=== PATIENT | male | born 1940 | race Caucasian/White ===

== ENCOUNTER → 2018-10-11 11:54 | Outpatient (CLI) | payer MEDICARE, SELFPAY | PROVIDERS: Family Provider Family Medicine; PCP Family Medicine; Visit Provider Orthopaedic Surgery | DX: Z01.818 Encounter for other preprocedural examination (principal) | CPT/HCPCS: 93005 ==

== ENCOUNTER 2018-11-11 08:33 | Inpatient (IN) | payer MEDICARE, SELFPAY ==
[2018-10-28 13:39] VITALS: BMI 29.8
[2018-11-11] VITALS (12 sets, daily range): BP systolic 97–146; BP diastolic 49–75; PULSE 47–64; RESP 9–19; TEMP 35.5–36.7; O2SAT 95–100; BMI 28.7
--- NOTE | 2018-11-11 | DI.RAD.S_ITS ---
PROCEDURE: XR HIP W PEL IF DONE LT 2V INDICATIONS: TOTAL LEFT HIP POST OPERATIVE TECHNIQUE: AP pelvis and lateral view of the left hip acquired. COMPARISON: None. FINDINGS: Bones: Patient is status post left hip arthroplasty, with hardware components in expected positions. The hip joint appears congruent. The visualized bony structures appear intact. Soft tissues: Overlying postoperative changes are noted. No suspicious soft tissue densities. Left hip periarticular surgical drain noted. IMPRESSION: Expected postsurgical change for left hip arthroplasty. Dictated by: Tatiana Ritter MD, PhD on 11/11/2018 at 13:58 Approved by: Tatiana Ritter MD, PhD on 11/11/2018 at 13:59
--- NOTE | 2018-11-11 06:00 | DI.RAD.S_ITS ---
PROCEDURE: XR PELVIS 1-2V INDICATIONS: INTEROPERTIVE LEFT HIP TECHNIQUE: Intra-operative view of the pelvis and hip acquired. COMPARISON: None. FINDINGS: Bones: Intraoperative devices prior to placement of arthroplasty prostheses are in expected positions. No fractures or suspicious bony lesions. Soft tissues: Overlying surgical retractors are present, along with other intraoperative changes. Dictated by: Jese White M.D. on 11/11/2018 at 16:31 Approved by: Jese White M.D. on 11/11/2018 at 16:32
[2018-11-11] MEDS: LACTATED RINGERS 1,000 ML 42 ML IV ×2 (09:04→11:57)
[2018-11-11] MEDS: CELECOXIB 200 MG CAPSULE PO (09:12)
[2018-11-11] MEDS: ACETAMINOPHEN 325 MG TABLET 975 MG PO ×3 (09:13→21:05)
[2018-11-11] MEDS: VANCOMYCIN 1,000 MG/200 ML PIGGYBACK 200 MG IV (10:06)
--- NOTE | 2018-11-11 10:39 | PM.PREOP ---
Pre-operative Note Interval Note History & Physical reviewed/Exam performed by Physician: Yes Changes to H&P: No
--- NOTE | 2018-11-11 10:40 | P.OP_ITS ---
Operative Date/Time/Diagnoses Date of procedure: 11/11/18 Time of procedure: 11:18 Pre-op diagnosis: Left hip osteoarthritis Post-op diagnosis: same Procedure & Clinicians Procedure: Left total hip arthroplasty Same procedure as scheduled: Yes Indications: The patient has had progressively worsening left hip pain with radiographic changes consistent with arthritis. Non-operative management has failed and the patient has requested total hip replacement. The risks, benefits and alternatives to surgery were discussed with the patient prior to proceeding. Risks discussed included, but were not limited to, failure to relieve pain, leg length discrepancy, dislocation, stiffness, infection, nerve damage, deep venous thrombosis, pulmonary embolism, stroke, coma, heart attack, permanent paralysis and , as well as the potential need for eventual revision of the prosthetic. Surgeon: Deloris Krishnan Nurse Infection Control: Lin Mcallister Anesthesia Type: General and Spinal Operative Notes Findings: Severe left hip osteoarthritis, good stability Closure Type: primary Specimen(s): none sent Prosthetic devices, grafts, tissues, transplants, or devices: Krishnan and Nephew R3 60, anthology standard offset 10, +4 by 40 Applied: drain(s) Estimated Blood Loss (mL): 250 Blood products transfused: none Procedure in detail: The patient was seen in the pre-operative area, where the patient identified the left hip as the operative site and this was marked with my initials. The patient received pre-operative antibiotics and was taken to the operating room and placed on the operative table in the right lateral decubitus position after satisfactory anesthesia. A time study technologist out was performed. The left leg was prepared from the ankle to the iliac crest with ChloroPrep in the usual fashion and draped through sterile drapes. The hip was approached through an approximately 20 cm incision centered over the greater trochanter and curving gently posteriorly as it went proximally. This was carried sharply to the fascia maya, which was divided and retracted with a self retaining retractor. The trochanteric bursa was excised with care being taken to avoid the sciatic nerve, which was identified and protected throughout the case. The short external rotators were incised and the capsulomuscular flap was raised and tagged for later repair. The hip was dislocated, and a femoral neck osteotomy performed approximately 15 mm above the lesser trochanter. Retractors were placed around the femur. The canal was opened with a box cutting osteotome, followed by a T handled reamer and a lateralizing reamer. The chili pepper broach was then used, followed by sequential broaching until there was good stability of the broach in the femur. Retractors were placed to expose the acetabulum. The labrum and central soft tissues were removed. Reaming was performed initially going up in 2 mm increments, then 1 mm increments until good bite was obtained with an odd sized reamer. The cup 1 mm larger than the last reamer was then inserted using the appropriate anteversion guides. A trial neutral liner was placed. The broach was placed in the canal. A trial head and neck were then placed and the hip relocated and checked for leg length and stability. An intraoperative film confirmed the component position and no evidence of fracture. The patient was stable in the position of sleep, of squatting, and could be put through a range of motion with 45 degrees internal rotation without dislocation. At 90 degrees flexion, internal rotation to [70] was possible before dislocation. This was felt to be satisfactory and the appropriate components were opened, and the trials were removed. The acetabular liner was impacted into position. The final stem was then impacted into the prepared femoral canal. A brief Betadine soak was performed while trialing with head options. The hip was meticulously irrigated with normal saline. Finally the femoral head was impacted onto the stem. The acetabulum was cleared of all material and the hip relocated one final time. The capsulomuscular flap was then repaired to the greater trochanter though an awl hole using the tag sutures. The short external rotators were repaired with a nonabsorbable suture. A deep drain was placed and brought out anteriorly. The fascia maya was closed with Vicryl. The subcutaneous layer was closed with barbed sutures and SteriStrips. An Aquacel Ag dressing was applied and the patient was taken to recovery having tolerated the procedure well. Complications: none Post-operative Condition: stable Disposition: Acute Care Plan for aftercare: The patient will be maintained on a standard total hip replacement protocol with weight bearing as tolerated and posterior hip precautions. The patient will receive Xarelto or coumadin and sequential compression devices for DVT prophylaxis. 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 The patient will be discharged home when safe for the home environment.
[2018-11-11] MEDS: CEFAZOLIN 2 GM/100 ML FROZ.PIGGY IV ×2 (11:05→19:03)
--- NOTE | 2018-11-11 11:37 | SUR.OPER ---
Lateral on padded OR bed. Gel axillary roll. Arms secured on padded armboard with pillow supporting top arm. Padded hip positioner braces x4 - anterior and posterior chest and pelvis. Additional gel pad used anterior pelvis. Gel pad under bottom leg from knee to foot and secured with tape over sheet.
[2018-11-11] MEDS: BUPIVACAINE 0.25% W/ EPI 30 ML VIAL 60 ML INJ (11:44)
[2018-11-11] MEDS: BUPIVACAINE LIPOSOME 266 MG/20 ML VIAL INJ (11:44)
[2018-11-11] MEDS: SODIUM CHLORIDE IRRIG SOLUTION 250 ML, POVIDONE-IODINE SPONGE STICKS 1 APPLIC IRR (11:46)
--- NOTE | 2018-11-11 13:52 | SUR.PHASEI ---
stable pacu stay, transported up to room 225 and left in stable condition.
[2018-11-11] MEDS: LACTATED RINGERS 1,000 ML 125 ML IV ×2 (14:26→21:09)
--- NOTE | 2018-11-11 14:38 | PC.NURSE ---
Patient alert, oriented denies pain and nausea at this time. SCd's on, pt oriented to call light and room.
--- NOTE | 2018-11-11 17:38 | PC.NURSE ---
Addendum entered by Zelda Galeano R.N. 11/11/18 23:23: Correction to prior note. Pt does not have concepcion note was meant to read urinal placed at bedside. Pt has voided via urinal this shift. Original Note: Assumed care of pt at 1500. Pt resting in bed during bedside hand-off. Denies pain. CMS+. Drsg c/d/i with h/v compressed and draining sang drainage. SCD's. IVF infusing per orders. Following post. hip precautions, pillow between legs. Concepcion placed at bedside. Bed alarm on. Call light within reach. Student nurse participating with pt care and medication administrations. All care/administration completed by student nurse under supervision of this RN.
[2018-11-11] MEDS: ASPIRIN EC 81 MG TABLET PO (21:04)
[2018-11-11] MEDS: OXYCODONE IR 5 MG TABLET PO (21:04)
[2018-11-11] MEDS: DOCUSATE 100 MG CAPSULE PO (21:05)
[2018-11-11] MEDS: TERAZOSIN 5 MG CAPSULE 10 MG PO (21:05)
[2018-11-11] MEDS: SIMVASTATIN 10 MG TABLET PO (21:05)
[2018-11-12] MEDS: CEFAZOLIN 2 GM/100 ML FROZ.PIGGY IV (02:59)
[2018-11-12] MEDS: PANTOPRAZOLE 20 MG TABLET PO (05:33)
[2018-11-12 05:35] VITALS: BP 122/63; PULSE 98; RESP 16; TEMP 36.6; O2SAT 98
[2018-11-12 06:12] LABS: Hematocrit 33.6 % (41-53); Hemoglobin 11.3 g/dL (13.5-17.5)
[2018-11-12 07:49] VITALS: BP 118/64; PULSE 66; RESP 16; TEMP 36.7; O2SAT 99
--- NOTE | 2018-11-12 07:56 | P.PN_ITS ---
Subjective Subjective Date Patient Seen: 11/12/18 Time Patient Seen: 07:56 Interval history: POD #1 s/p Left total hip arthroplasty. Pain well controlled. Will do Xarelto for history of PE. Drain in place. Exam Vital Signs (past 8 hours): - 11/12/18 05:35 11/12/18 07:49 Temperature 97.8 F 98.0 F Pulse Rate 98 H 66 Respiratory Rate 16 16 Blood Pressure 122/63 118/64 Pulse Oximetry 98 99 Oxygen Delivery Method Room Air Oxygen Flow Rate 0 Narrative Exam Narrative: Patient lying in bed in NAD. He is alert and oriented X3. Dressing on left hip is CDI. Calves are soft, compressible, and nontender bilaterally. Pulses are symmetrical. He is able to actively dorsiflex and p lantarflex. Objective Labs Result Diagrams: 11/12/18 06:00 Labs: Laboratory Results - last 24 hr 11/12/18 06:00 Hgb 11.3 L Hct 33.6 L Assessment & Plan Post-op Postoperative Procedures: Procedures Operation Date: 11/11/18 10:45 Actual Procedures Side Surgeon p Total Hip Arthroplasty Left Deloris Krishnan MD Plan to work with PT today. Follow posterior precautions. Xarelto for VTE prophylaxis. Continue current pain control. Possible DC home today or tomorrow morning. Quality VTE Deep Vein Thrombosis/Pulmonary Embolism Present on Admission: No
[2018-11-12] MEDS: OXYCODONE IR 5 MG TABLET PO ×2 (08:48→13:49)
[2018-11-12] MEDS: RIVAROXABAN 10 MG TABLET PO (09:21)
[2018-11-12] MEDS: ACETAMINOPHEN 325 MG TABLET 975 MG PO (09:21)
[2018-11-12] MEDS: DOCUSATE 100 MG CAPSULE PO (09:22)
[2018-11-12] MEDS: INFLUENZA VACCINE 0.5 ML SYRINGE IM (09:23)
[2018-11-12] MEDS: ASPIRIN EC 81 MG TABLET PO (09:23)
--- NOTE | 2018-11-12 10:55 | PT.IIE ---
Current Diagnoses Unilateral primary osteoarthritis, left hip (11/11/18) Surgery Performed Operation Date: 11/11/18 10:45 Actual Procedures p Total Hip Arthroplasty(Left) - Deloris Krishnan MD Surgical History (Last Updated 10/28/18 @ 14:19 by Starla Hawkins, RN) H/O vasectomy (Acute) History of arthroplasty of left knee (Acute 12/06/10) History of laser refractive surgery (Acute) Hx of bilateral cataract extraction (Acute) Hx of hernia repair (Acute) Medical History (Last Updated 10/28/18 @ 14:19 by Starla Hawkins RN) Back pain (Acute) Enlarged prostate (Acute) GERD (gastroesophageal reflux disease) (Acute) History of kidney problems (Acute) HLD (hyperlipidemia) (Acute) HTN (hypertension) (Acute) Loss of hearing (Acute) Numbness and tingling of both feet (Acute) Pneumonia (Acute) Pulmonary emboli (Acute 12/06/10) Skin cancer (Acute) Physical Therapy Inpatient Evaluation/Re-Eval M1 PT/OT-IP Prior Functional Status Start: 11/12/18 09:45 Freq: NEEDED Status: Active Protocol: Document 11/12/18 10:30 AW (Rec: 11/12/18 10:54 AW [email or web address]) Medical Review Prior Functional Status Medical History Reviewed Yes Diet/Fluid Consistency Regular Communication Able to make needs known Mobility and Gait Independent with all functional mobility, no assistive device Activities of Daily Living and IADL's Independent Social History Household Members spouse Living Arrangements House Number of Floors (Floors) Two Floors Number of Stairs To Enter/Railing? 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 Spouse is available and able to assist as needed. M2 PT-IP Current Condition Start: 11/12/18 09:45 Freq: NEEDED Status: Active Protocol: Document 11/12/18 10:30 AW (Rec: 11/12/18 10:54 AW [email or web address]) Physical Therapy Current Condition Current Condition Evaluation Date 11/12/18 Treatment Diagnosis s/p L HALLEY with posterior approach, impaired gait and transfers Precautions Posterior Hip Precautions No Hip Flexion > 90 degrees,No Hip Internal Rotation,No Hip Adduction Weight Bearing Status Weight Bearing Status Weight Bear as Tolerated Allowed Weight Bearing Amount (enter % WBAT LLE or #) (%) M3 PT-IP Subjective Start: 11/12/18 09:45 Freq: NEEDED Status: Active Protocol: Document 11/12/18 10:30 AW (Rec: 11/12/18 10:54 AW [email or web address]) Subjective Physical Therapy Visit Type Type Initial Evaluation Visit Start Time 09:54 Visit Stop Time 10:28 Total Visit Minutes 34 Notes Pt seen with spouse and daughter present Number of FELLER SEAM OPERATOR Visits 0 Physical Therapy Visit Comments Patient Comments Pt sitting up in chair, ready to ambulate Patient Goals Pt hopes to discharge to home with spouse assist Therapy Pain Assessment Pain When Pain Assessed During Mobility Pain Present Pain Present Pain Reported Location Hip Intensity 4 Scale Used 2/10 at rest; 4/10 with mobility Pain Management Techniques Apply Cold,Timing of Activity with Medications M4 PT-IP Mobility and Gait Start: 11/12/18 09:45 Freq: NEEDED Status: Active Protocol: Document 11/12/18 10:30 AW (Rec: 11/12/18 10:54 AW [email or web address]) PT-Bed Mobility Assessment Supine to Sit Supine to Sit Standby Assistance Sit to Supine Sit to Supine Contact Guard Assistance Scooting Scooting to Edge of Bed Standby Assistance PT-Transfer Assessment Sit to and From Stand Sit to and from Stand Contact Guard Assistance Equipment Transfer Assistive Device Gait Belt,Front Wheeled Walker Orthotic/Prosthetic Devices or Brace: No Transfers Transfer Destination Bed,Chair Transfer Technique pt ambulated with FWW Transfer Ability Level of Assist Standby Assistance,Contact Guard Assistance Comments Mobility Comments Pt able to transfer supine to sit SBA. Sit to supine required CGA to support the operative leg. Sit to stand required CGA and cues to maintain hip precautions/avoid bending forward. Gait Assessment Gait Gait Assistance Required: Standby Assistance Distance (Feet) 75 Able to Maintain Weight Bearing Status Yes During Gait Assistive Devices Assistive Device Gait Belt,Front Wheeled Walker Orthotic/Prosthetic Devices or Brace: No Gait Deviations General Gait Pattern Decreased Stride Length, Decreased Feet Clearance, Flexed Trunk Factors Limiting Gait Function Factors Limiting Gait Function Decreased Strength,Limited Range of Motion,Pain Comments Gait Comments Pt ambulated 75 feet using FWW SBA. He demonstrated equal step length, though he did note he felt he was stepping into a hole with RLE weightbearing. Pt was observed with excessive knee extension in LLE stance which likely explains the sensation. PT-Balance Assessment Sitting Balance and Reactions Static Sitting Balance Ability Good Dynamic Sitting Balance Ability Good Standing Balance and Reactions Static Standing Balance Ability Good Dynamic Standing Balance Ability Good Device Used FWW M5 PT-IP Objective Assessments Start: 11/12/18 09:45 Freq: NEEDED Status: Active Protocol: Document 11/12/18 10:30 AW (Rec: 11/12/18 10:54 AW [email or web address]) Orientation Orientation/Cognition Level of Alertness Alert Orientation Name,Date,Place,Situation Language Function Ability No Deficits Noted Safety Awareness Understands Safety Issues Memory Description No Deficits Noted Gross Range of Motion Upper Extremity ROM Assessment Within Functional Limits Lower Extremity ROM Assessment Left Impaired Strength Upper Extremity Strength Assessment Within Functional Limits Lower Extremity Strength Assessment Left Impaired Comments Strength Comments RLE grossly 5/5 Coordination Assessment Gross Coordination Gross Coordination WNL Sensation Assessment Sensation Gross Sensation WNL M6 PT-IP Treatment Start: 11/12/18 09:45 Freq: NEEDED Status: Active Protocol: Document 11/12/18 10:30 AW (Rec: 11/12/18 10:54 AW [email or web address]) Physical Therapy Treatment Exercises Exercises Ankle Pumps,Gluteal Sets,Quad Sets,Heel Slides M7 PT-IP Assessment and Plan Start: 11/12/18 09:45 Freq: NEEDED Status: Active Protocol: Document 11/12/18 10:30 AW (Rec: 11/12/18 10:54 AW [email or web address]) PT Summary Assessment and Plan Potential Rehabilitation Potential Excellent Status of Condition at Evaluation Evolving Summary Impairments Pain,ROM,Strength,Bed Mobility ,Transfers,Gait Assessment Summary Pt is an active 78 yo man seen on POD1 following L HALLEY with posterior approach. He was indpendent in all regards with mobility and ADL's. On evaluation, pt required CGA for transfers and SBA for ambulation 75 feet with FWW. PT reviewed plan of care, post -op exercises, posterior hip precautions, and safe use of FWW. PT strongly recommends pt continue to use FWW at least until follow up appointment with orthopedics. Pt is safe to discharge home with spouse assist and outpatient PT once he clears the stairs at afternoon session. Goals Bed Mobility Goal Independent Transfer Goal Standby Assistance Gait Goal Standby Assistance Gait Distance 150 Other Goals up/down 3 steps using left rail (ascending) SBA. Days to Meet Goals 1 Frequency of Treatment Frequency Of Treatment Twice a Day Treatment Plan Physical Therapy Treatment Plan Bed Mobility Training,Transfer Training,Gait Training, Therapeutic Exercise,Balance Retraining,Post Op Education, Discharge Planning,Hot or Cold Pack,Neuromuscular Re-ed, Coordination Retraining,Manual Therapy Other Recommendations and Next Treatment progress gait distance; trial Focus stairs. pt cleared for discharge after completing stair training. Recommendations To Nursing Amount of Assist Needed Standby Assistance Discharge Recommendations PT Discharge Recommendations Home with Assistance, Outpatient PT
--- NOTE | 2018-11-12 11:23 | CM.DANOTE ---
DCP assessment: EMR reviewed: Patient is a 78 yr old male who was admitted for Left total hip replacement preformed by Dr. Krishnan. Patients PCP is Dr. Curiel. met with patient at bedside and explained CM/RNs role. Patient lives in a two story home but does not need to go to the second floor. Patient does have 3 steps into his house and PT will be assisting with steps prior to discharge. Patient has OP OT set up to start on 11/18/2018 with [facility] in [place]. Insurance: 1st payer: Medicare, 2nd payer: AARP Discharge plan: Patient is to d/c home with OP PT today 11/12/2018 or tomorrow 11/13/2018 pending PT stair evaluation. No d/c planning needs identified at this time. Tricia Krishnan RN. Discharge Planning/Care Management Advanced directive, confirm from FAMILY Start: 11/11/18 14:25 Freq: Q24H Status: Active Protocol: Document 11/11/18 14:37 SFP (Rec: 11/11/18 14:37 SFP [id number]) Advance Directive, confirm on record Time 14:37 Person contacted Pat spouse Copy received No CM Discharge Assessment Start: 11/12/18 11:21 Freq: Status: Active Protocol: Document 11/12/18 11:21 HS (Rec: 11/12/18 11:23 HS [id number]) Discharge Planning Assessment Assigned Executive Manager Tricia Krishnan RN DPOA/Assigned Designee Name Damaris evangelista () Contact Information [phone] Advance Directives? Yes Advance Directives on File No History Provided By Patient Has Patient been admitted in last 30 No days? Prior Living Arrangements House Household Members spouse Type of transporation used prior to Drives own vehicle admit Independent with ADL's Yes Is patient alert and oriented? Yes Caregiver for Another No DME Already Rented / Owned FWW / Walker,Cane Patient/Family Preference OP PT Therapy Barriers to Discharge No Discharge Plan Home Whiteboard Updated in Patient Room with Yes name and ext. # of Executive Manager Review Status In Process Next Review Type Continued Stay Review Pre-Anesthesia Assessment Start: 10/28/18 13:39 Freq: Status: Complete Protocol: Document 10/28/18 13:39 CAB (Rec: 10/28/18 14:37 CAB [id number]) Pre-Anesthesia Assessment Patient Also Known As (AKA) Devyn Patient Information Reviewed Via Phone Assessment Assessment Completed With Patient Diagnostic Results BMP/CMP,CBC,EKG,Urinalysis Comment EKG @ [facility] 10/11/18 Outside labs 10/31/18, 09/16/18 scanned to record Primary Care Provider Han Curiel Seen Specialist in Last 12 Months Yes Specialist Seen Human Machine Interface Engineer,Orthopedist Primary Language Sudanese Meter Reader Inspector Required No Height 177.8 cm Weight 94.347 kg Body Mass Index (BMI) 29.8 Hearing Ability Normal Visual Assist Magnifying Glass Dentition Type Teeth, Natural Present Barriers to Learning Visual Other Aids No Hx Anesthesia Reactions No Hx Family Anesthesia Reaction No Hx Malignant Hyperthermia No Hx Blood Transfusions No Anesthesia Review Requested No alcohol intake never Smoking Status Never smoker Substance Use Type does not use Pain Present Pain Reported Musculoskeletal Symptoms Back Pain,Difficulty Walking, Joint Pain History of Falling (Recent or History of No ) Patient is completely paralyzed or No completely immobile Mental Status Oriented to own ability Is patient on oxygen? No Does patient have ROBLES/SOB No Hx Sleep Apnea No Currently Taking a Beta Toby No Can You Climb a Flight of Stairs Without Yes SOB Hx Chest Pain No Hx SOB No Hx Syncope or Dizziness No Anti-Coagulant Therapy No Has a Molecular Technologist No Cardiac Testing No Hx Pacemaker/ICD No Pacemaker Rep Required? No Cardiac Clearance Received Not Applicable Diet Type At Home Regular dysphagia No Bladder Pattern Frequency,Incontinent,Nocturia ,Urgency Urinary Catheter Present No Hx Urinary Self Catheterization No Diabetes No HgbA1C 5.7 Date 10/31/18 Hx Drug Resistant Organism No Presence of External or Internal Medical Yes: Left knee prosthesis, Devices bilateral eye lens Have you traveled outside the [facility] in the last 30 days? Marital Status Lives With spouse Prior Living Arrangements House Number of Floors (Floors) Two Floors Support System Child/Children,Spouse Does the Patient Have Assistance After Yes Surgery Patient Discharge Plan Description Return Home Feels Safe in Current Environment Yes Been Physically Hurt or Threatened By a No Person in Current Environment Do you have thoughts of harming yourself None or others? Are you currently considering suicide? No Do you have a plan to hurt yourself or No Plan others? Comment Pt advised 1-2 day length of stay per surgeon's office Do You Have Any Spiritual Beliefs That No May Affect Your HC Choices? Do You Have Any Cultural Practices That No May Affect Your HC Choices? Comment Muslim Who Can We Speak to About Patient's Care Family, friends Identifying Code for Release of Patient Declines to issue Information Health Care Proxy/Next of Kin Pat () Health Care Proxy , Emergency Contact Name Pat () Emergency Contact , Advance Directives? Yes Advance Directives on File No Requested Patient Bring Advanced Yes Directives DOS PAC Instructions Durable medical equipment, Medications to take/avoid, Nasal antibiotic,No ETOH/ petroleum product on skin DOS, NPO,Post-op transportation,Pre -surgical wash,Sensory aids, Sturdy shoes/comfortable clothes,Do not bring valuables and remove jewelry
[2018-11-12 12:14] VITALS: BP 109/53; PULSE 62; RESP 16; TEMP 36.7; O2SAT 99
[2018-11-12] MEDS: FINASTERIDE 5 MG TABLET PO (12:14)
--- NOTE | 2018-11-12 13:42 | PT.IPTN ---
Current Diagnoses Unilateral primary osteoarthritis, left hip (11/11/18) Surgery Performed Operation Date: 11/11/18 10:45 Actual Procedures p Total Hip Arthroplasty(Left) - Deloris Krishnan MD Physical Therapy Treatment Note M2 PT-IP Current Condition Start: 11/12/18 09:45 Freq: NEEDED Status: Discharge Protocol: Document 11/12/18 10:30 AW (Rec: 11/12/18 10:54 AW [id number]) Physical Therapy Current Condition Current Condition Evaluation Date 11/12/18 Treatment Diagnosis s/p L HALLEY with posterior approach, impaired gait and transfers Precautions Posterior Hip Precautions No Hip Flexion > 90 degrees,No Hip Internal Rotation,No Hip Adduction Weight Bearing Status Weight Bearing Status Weight Bear as Tolerated Allowed Weight Bearing Amount (enter % WBAT LLE or #) (%) M3 PT-IP Subjective Start: 11/12/18 09:45 Freq: NEEDED Status: Discharge Protocol: Document 11/12/18 13:21 CLB (Rec: 11/12/18 13:58 CLB [id number]) Subjective Physical Therapy Visit Type Type Treatment Note Visit Start Time 13:21 Visit Stop Time 13:45 Total Visit Minutes 24 Number of BILLET BED OPERATOR Visits 1 Physical Therapy Visit Comments Patient Comments Pt wanting to trial stairs so he can go home. Therapy Pain Assessment Pain When Pain Assessed During Mobility Pain Present Pain Present Pain Reported Location Hip Intensity 4 Pain Management Techniques Apply Cold,Timing of Activity with Medications M4 PT-IP Mobility and Gait Start: 11/12/18 09:45 Freq: NEEDED Status: Discharge Protocol: Document 11/12/18 13:21 CLB (Rec: 11/12/18 13:58 CLB [id number]) PT-Transfer Assessment Sit to and From Stand Sit to and from Stand Contact Guard Assistance Equipment Transfer Assistive Device Gait Belt,Front Wheeled Walker Orthotic/Prosthetic Devices or Brace: No Transfers Transfer Destination Chair,Wheelchair Transfer Technique pt ambulated with FWW Transfer Ability Level of Assist Standby Assistance,Contact Guard Assistance Comments Mobility Comments Pt continues to require cues to put leg forward before sit< >stand. Gait Assessment Gait Gait Assistance Required: Standby Assistance Distance (Feet) 125 Able to Maintain Weight Bearing Status Yes During Gait Assistive Devices Assistive Device Gait Belt,Front Wheeled Walker Orthotic/Prosthetic Devices or Brace: No Gait Deviations General Gait Pattern Decreased Stride Length, Decreased Feet Clearance, Flexed Trunk Factors Limiting Gait Function Factors Limiting Gait Function Decreased Strength,Limited Range of Motion,Pain Comments Gait Comments Pt able to use small step through gait pattern during gait and increase distance to ~125ft before sitting in WC to complete distance to trial stairs. Stair Climbing Assessment Evaluation Level of Assist On Stairs Contact Guard Assistance,1 Person Assistance Devices Stair Climbing Assistive Devices Left Railing Technique/Endurance Stair Climbing Direction Ascend and Descend Stair Climbing Technique Step to Step Number of Steps Climbed 3 Stair Climbing Set # Repetitions (reps) 1 Comments Stair Climbing Comments Pt able to climb stairs with assist of daughter using CGA. M5 PT-IP Objective Assessments Start: 11/12/18 09:45 Freq: NEEDED Status: Discharge Protocol: Document 11/12/18 10:30 AW (Rec: 11/12/18 10:54 AW [id number]) Orientation Orientation/Cognition Level of Alertness Alert Orientation Name,Date,Place,Situation Language Function Ability No Deficits Noted Safety Awareness Understands Safety Issues Memory Description No Deficits Noted Gross Range of Motion Upper Extremity ROM Assessment Within Functional Limits Lower Extremity ROM Assessment Left Impaired Strength Upper Extremity Strength Assessment Within Functional Limits Lower Extremity Strength Assessment Left Impaired Comments Strength Comments RLE grossly 5/5 Coordination Assessment Gross Coordination Gross Coordination WNL Sensation Assessment Sensation Gross Sensation WNL M6 PT-IP Treatment Start: 11/12/18 09:45 Freq: NEEDED Status: Discharge Protocol: Document 11/12/18 10:30 AW (Rec: 11/12/18 10:54 AW [email or web address]) Physical Therapy Treatment Exercises Exercises Ankle Pumps,Gluteal Sets,Quad Sets,Heel Slides M7 PT-IP Assessment and Plan Start: 11/12/18 09:45 Freq: NEEDED Status: Discharge Protocol: Document 11/12/18 13:21 CLB (Rec: 11/12/18 13:58 CLB [id number]) PT Summary Assessment and Plan Summary Assessment Summary Pt recalled 2/3 precautions and required cues to put out leg before sit<>stand. Instructed pt in getting into vehicle to prevent breaking post hip precautions. Pt able to climb stairs with CGA and ambulated SBA ~125ft. Pt seems able to d/c home with assist of and daughter. Goals Bed Mobility Goal Independent Transfer Goal Standby Assistance Gait Goal Standby Assistance Gait Distance 150 Other Goals up/down 3 steps using left rail (ascending) SBA. Days to Meet Goals 1 Frequency of Treatment Frequency Of Treatment Twice a Day Treatment Plan Physical Therapy Treatment Plan Bed Mobility Training,Transfer Training,Gait Training, Therapeutic Exercise,Balance Retraining,Post Op Education, Discharge Planning,Hot or Cold Pack,Neuromuscular Re-ed, Coordination Retraining,Manual Therapy Recommendations To Nursing Amount of Assist Needed Standby Assistance Discharge Recommendations PT Discharge Recommendations Home with Assistance, Outpatient PT
--- NOTE | 2018-11-12 13:51 | PC.NURSE ---
Went over dc meds and instructions with patient and patients family, questions answered. Pt taken via wc to vehicle driven by family, patient had all belongings. Xarelto rx called into [facility].
== END 2018-11-12 13:58 | disposition home or self-care (01) | DRG 470 ==
PROVIDERS: Admitting Provider Orthopaedic Surgery; Family Provider Family Medicine; PCP Family Medicine; Visit Provider Orthopaedic Surgery
PROC: 0SRB0JZ Replacement of Left Hip Joint with Synthetic Substitute, Open Approach (ICD-10-PCS; CPT 27130; principal; 2018-11-11 10:45)
DX: M16.12 Unilateral primary osteoarthritis, left hip (principal); I10 Essential (primary) hypertension; Z86.711 Personal history of pulmonary embolism
CPT/HCPCS: 36415; 72170; 73502; 85014; 85018; 90471; 90656; 97116; 97161; 97530; C1776; C9290; J0171; J0690; J2250; J2704; J3010; Q2038

== ENCOUNTER 2019-11-03 11:15 | Outpatient (RCR) | payer MEDICARE, OTHER, SELFPAY ==
[2018-11-11 14:22] VITALS: BMI 28.7
--- NOTE | 2019-10-07 17:25 | PT.OIE ---
Current Diagnoses Lymphedema, not elsewhere classified (10/07/19) Localized edema (10/07/19) Past Medical History (Last Updated 10/28/18 @ 14:19 by Starla Hawkins RN) Back pain (Acute) Enlarged prostate (Acute) GERD (gastroesophageal reflux disease) (Acute) History of kidney problems (Acute) HLD (hyperlipidemia) (Acute) HTN (hypertension) (Acute) Loss of hearing (Acute) Numbness and tingling of both feet (Acute) Pneumonia (Acute) Pulmonary emboli (Acute 12/06/10) Skin cancer (Acute) Past Surgical History (Last Updated 10/28/18 @ 14:19 by Starla Hawkins RN) H/O vasectomy (Acute) History of arthroplasty of left knee (Acute 12/06/10) History of laser refractive surgery (Acute) Hx of bilateral cataract extraction (Acute) Hx of hernia repair (Acute) Visit Care Team Role Provider Type Han Curiel MD Attending Provider Non-Staff Family Provider Primary Care Provider Referring Provider Specialty: Medical Address: [address] [place] [address] Dr [address] [facility], [place], [place], [facility] Email: Physical Therapy Initial Evaluation PT-OP-A Visit Information Start: 10/07/19 13:00 Freq: Status: Active Protocol: Document 10/07/19 13:01 [facility] (Rec: 10/07/19 15:22 [facility] [id number]) Out-Patient Physical Therapy Visit Information Visit Information Visit Type Initial Evaluation Visit Start Time 13:00 Visit Stop Time 14:25 Total Visit Minutes 85 Visit Number 1 Evaluation Information Evaluation Date 10/07/19 Precautions Precautions PMH: back pain, blood clots, HTN PT-OP-B Current Condition Start: 10/07/19 13:00 Freq: Status: Active Protocol: Document 10/07/19 13:01 SAK (Rec: 10/07/19 15:22 [facility] [id number]) Current Condition History of Current Condition Onset Date 3 wks ago Current Complaints swelling right LE History of Current Condition Woke up with swelling right LE , no trauma, no surgery. History of bladder cancer; surgery April and May 2019. Chemo June 17-. Reports recent blood tests looked good. No lymph nodes removed, no incision; entry was through the penis. History HTN, medicated. No other cardiac issues. PA did blood work and x-rays, doppler; all negative. Doctor did ltrasound and blood work normal. Compression stockings (generic copper) not helpful. Prescribed Prednisone which decreased the swelling some. Prior Treatments and Tests see above Future Testing and Treatments Planned Chemo end october 1x/wk x 3 wks. Treatment Goals Patient/Caregiver Goals Minimize or eliminate the swelling in his LE to allow him to wear his usual clothes and return to all usual activities. Personal Factors Other Personal Factors That May Effect PMH: left TKA, left HALLEY, 3 Therapy/Recovery inguinal herniasurgeries. Yashira biopsy years ago- sees a pin inserter regulator. PT-OP-C Subjective Start: 10/07/19 13:00 Freq: Status: Active Protocol: Document 10/07/19 13:01 [facility] (Rec: 10/12/19 17:24 [facility] [id number]) OP-PT Pain Assessment Location right lower leg, ankle Intensity 2 PT-OP-G Mobility & Gait Start: 10/07/19 13:00 Freq: Status: Active Protocol: Document 10/07/19 13:01 [facility] (Rec: 10/12/19 17:24 [facility] [id number]) OP Gait Assessment Gait Gait Assistance Required: Independent Assistive Devices Assistive Device None PT-OP-J Posture/Palpation/Skin Start: 10/07/19 13:00 Freq: Status: Active Protocol: Document 10/07/19 13:01 [facility] (Rec: 10/12/19 17:24 [facility] [id number]) Palpation Assessment Location right LE Palpation Findings Edema,Soft Tissue Tightness Palpation Details Stemmer sign positive right LE PT-OP-K Range of Motion Start: 10/07/19 13:00 Freq: Status: Active Protocol: Document 10/07/19 13:01 [facility] (Rec: 10/12/19 17:24 [facility] [id number]) Hip Goniometric Range of Motion Hip adonay Hip ROM WFL Yes Knee Goniometric Range of Motion Knee adonay Knee ROM WFL Yes Ankle and Foot Goniometric Range of Motion Ankle and Foot Right Ankle/Foot ROM WFL No Dorsiflexion with Knee Flexed 0 Dorsiflexion with Knee Extended 5 left Ankle/Foot ROM WFL Yes Ankle and Foot ROM Limitations ROM Limitations Swelling Toe Range of Motion Toes ROM Limitations Toe ROM Limitations Soft Tissue Tightness,Swelling PT-OP-N Lymphedema Start: 10/07/19 13:00 Freq: Status: Active Protocol: Document 10/07/19 13:01 [facility] (Rec: 10/12/19 17:24 [facility] [id number]) Lymphedema Measurements Lower Extremity Circumference Measurements Right Affected MT Heads 24.2 cm Medial Malleolus 27.8 cm 10 cm From Medial Malleolus 26.1 cm 20 cm From Medial Malleolus 35.4 cm 30 cm From Medial Malleolus 38.8 cm 40 cm From Medial Malleolus 40.3 cm 50 cm From Medial Malleolus 43.8 cm 60 cm From Medial Malleolus 49.7 cm 70 cm From Medial Malleolus 57.8 cm Left Unaffected MT Heads 23.5 cm Medial Malleolus 25.6 cm 10 cm From Medial Malleolus 24.5 cm 20 cm From Medial Malleolus 34.1 cm 30 cm From Medial Malleolus 38.1 cm 40 cm From Medial Malleolus 38.3 cm 50 cm From Medial Malleolus 43.3 cm 60 cm From Medial Malleolus 49.4 cm 70 cm From Medial Malleolus 56.1 cm Comments Lymphedema Comments midfoot left 24.9cm , right 24 .9cm PT-OP-Q Treatments Start: 10/07/19 13:00 Freq: Status: Active Protocol: Document 10/07/19 13:01 [facility] (Rec: 10/12/19 17:24 [facility] [id number]) Lymphedema Treatment Manual Lymphatic Drainage Location right LE Duration 20 Lymphedema Wrapping Body Location right LE ankle to knee Materials Tricofix, Artiflex, Comprilan 6,8,10 Other low pH lotion applied prior to wrapping for skin care Patient Education Lymphedema Pathology verbal and written information Lymphedema Prevention verbal and written information Lymphedema Precautions verbal and written information Compression Garments discussed Sequential Lymphedema Exercises verbal and written instruction PT-OP-T Assessment and Plan Start: 10/07/19 13:00 Freq: Status: Active Protocol: Document 10/07/19 13:01 [facility] (Rec: 10/12/19 17:24 [facility] [id number]) Physical Therapy Assessment Rehab Potential Rehabilitation Potential Good Evaluation Complexity Number of Personal Factors/Comorbidities 1-2 Number of Body Systems Impaired 3 Clinical Presentation at Evaluation Evolving Impairments Impairments Balance,Edema,ROM Goals Three Impairment ROM Neuro Ophthalmologist Goal (LTG) ROM WNL right ankle for safe mobility LTG Duration 01/10/20 Two Impairment lymphedema Short Term Goal (STG) Decrease circumferential measurements right LE to stable level (no increase or decrease greater than 1cm over the course of 1 week) STG Duration 12/27/19 [facility] Goal (LTG) Patient to be fit with appropriate compression garment for lymphedema management LTG Duration 01/10/20 One Impairment knowledge and self-care deficit Short Term Goal (STG) Patient to be instructed in self-MLD, self-wrapping, lymphedema precautions, sequential lymphedema exercises STG Duration 10/27/19 Neuro Ophthalmologist Goal (LTG) Patient to be independent with all aspects of lymphedema self management LTG Duration 01/10/20 Assessment Summary Assessment Patient presents with signs and symptoms of lymphedema right LE possibly related to cancer treatment with circumferential measurements on the right greater throughout LE. Feel he would benefit from physical therapy for patient education for self -management, Complete Decongestive Therapy for edema reduction, and assistance with being fit with appropriate compression garment. Physical Therapy Plan Frequency and Duration Frequency of Treatment 16 visits Duration of Treatment 12 wks Plan of Care Start Date 10/07/19 Plan of Care End Date 01/10/20 Therapeutic Interventions Therapeutic Interventions Lymphedema Management,Manual Therapy,Patient/Caregiver Education,Self-Care/Home Management,Therapeutic Exercises Next Visit Focus/Plan Next Note Type Treatment Note Next Visit Plan Review educational materials, answer questions as indicated. Manual lymphatic drainage and lymphedema wrapping right LE. Ther ex to facilitate lymphatic flow and improved right ankle ROM.
--- NOTE | 2019-10-07 17:25 | PT.OPPOC ---
Physical, Occupational & Speech Therapy At [facility] Current Diagnoses Lymphedema, not elsewhere classified (10/07/19) Localized edema (10/07/19) Visit Care Team Role Provider Type Han Curiel MD Attending Provider Non-Staff Family Provider Primary Care Provider Referring Provider Specialty: Medical Address: [address] [place] [address] [address], [place], [address] Email: Plan Of Care PT-OP-T Assessment and Plan Start: 10/07/19 13:00 Freq: Status: Active Protocol: Document 10/07/19 13:01 [facility] (Rec: 10/12/19 17:24 SAK [id number]) Physical Therapy Assessment Rehab Potential Rehabilitation Potential Good Evaluation Complexity Number of Personal Factors/Comorbidities 1-2 Number of Body Systems Impaired 3 Clinical Presentation at Evaluation Evolving Impairments Impairments Balance,Edema,ROM Goals Three Impairment ROM Rotor Blade Installer Goal (LTG) ROM WNL right ankle for safe mobility LTG Duration 01/10/20 Two Impairment lymphedema Short Term Goal (STG) Decrease circumferential measurements right LE to stable level (no increase or decrease greater than 1cm over the course of 1 week) STG Duration 12/27/19 [facility] Goal (LTG) Patient to be fit with appropriate compression garment for lymphedema management LTG Duration 01/10/20 One Impairment knowledge and self-care deficit Short Term Goal (STG) Patient to be instructed in self-MLD, self-wrapping, lymphedema precautions, sequential lymphedema exercises STG Duration 10/27/19 [facility] Goal (LTG) Patient to be independent with all aspects of lymphedema self management LTG Duration 01/10/20 Assessment Summary Assessment Patient presents with signs and symptoms of lymphedema right LE possibly related to cancer treatment with circumferential measurements on the right greater throughout LE. Feel he would benefit from physical therapy for patient education for self -management, Complete Decongestive Therapy for edema reduction, and assistance with being fit with appropriate compression garment. Physical Therapy Plan Frequency and Duration Frequency of Treatment 16 visits Duration of Treatment 12 wks Plan of Care Start Date 10/07/19 Plan of Care End Date 01/10/20 Therapeutic Interventions Therapeutic Interventions Lymphedema Management,Manual Therapy,Patient/Caregiver Education,Self-Care/Home Management,Therapeutic Exercises Next Visit Focus/Plan Next Note Type Treatment Note Next Visit Plan Review educational materials, answer questions as indicated. Manual lymphatic drainage and lymphedema wrapping right LE. Ther ex to facilitate lymphatic flow and improved right ankle ROM. Plan of Care Dates Plan of Care Start Date 10/07/19 Plan of Care End Date 01/10/20 Electronically Signed by: Evelyn Laughlin, PT 10/12/19 3069 Please Sign and Return: I have reviewed this Plan of Care and certify that the skilled therapy services above are required to meet the patient?s needs. Physician Signature Date Printed Name and Credentials Clinical Instructor Signature Printed Name and Credentials
--- NOTE | 2019-11-03 17:15 | PT.OTN ---
Current Diagnoses Lymphedema, not elsewhere classified (11/03/19) Localized edema (11/03/19) Physical Therapy Treatment Note PT-OP-A Visit Information Start: 10/07/19 13:00 Freq: Status: Active Protocol: Document 11/03/19 17:06 [facility] (Rec: 11/03/19 17:15 [facility] [id number]) Out-Patient Physical Therapy Visit Information Visit Information Visit Type Treatment Note Visit Start Time 11:15 Visit Stop Time 12:00 Total Visit Minutes 45 Visit Number 2 Evaluation Information Evaluation Date 10/07/19 Precautions Precautions PMH: back pain, blood clots, HTN PT-OP-B Current Condition Start: 10/07/19 13:00 Freq: Status: Active Protocol: Document 10/07/19 13:01 [facility] (Rec: 10/07/19 15:22 [facility] [id number]) Current Condition History of Current Condition Onset Date 3 wks ago Current Complaints swelling right LE History of Current Condition Woke up with swelling right LE , no trauma, no surgery. History of bladder cancer; surgery April and May 2019. Chemo June 17. Reports recent blood tests looked good. No lymph nodes removed, no incision; entry was through the penis. History HTN, medicated. No other cardiac issues. PA did blood work and x-rays, doppler; all negative. Doctor did ltrasound and blood work normal. Compression stockings (generic copper) not helpful. Prescribed Prednisone which decreased the swelling some. Prior Treatments and Tests see above Future Testing and Treatments Planned Chemo end of October 1x/wk x 3 wks. Treatment Goals Patient/Caregiver Goals Minimize or eliminate the swelling in his LE to allow him to wear his usual clothes and return to all usual activities. Personal Factors Other Personal Factors That May Effect PMH: left TKA, left HALLEY, 3 Therapy/Recovery inguinal herniasurgeries. [place] biopsy years ago- sees a telecommunicator supervisor. PT-OP-C Subjective Start: 10/07/19 13:00 Freq: Status: Active Protocol: Document 11/03/19 17:06 [facility] (Rec: 11/03/19 17:15 [facility] [id number]) OP-PT Subjective Patient Comments Patient Comments Patient reports he tried compression stockings again at home with better results than previously. Not wearing today but indicating decrease in swelling in right LE. PT-OP-G Mobility & Gait Start: 10/07/19 13:00 Freq: Status: Active Protocol: Document 10/07/19 13:01 [facility] (Rec: 10/12/19 17:24 [facility] [id number]) OP Gait Assessment Gait Gait Assistance Required: Independent Assistive Devices Assistive Device None PT-OP-J Posture/Palpation/Skin Start: 10/07/19 13:00 Freq: Status: Active Protocol: Document 10/07/19 13:01 [facility] (Rec: 10/12/19 17:24 [facility] [id number]) Palpation Assessment Location right LE Palpation Findings Edema,Soft Tissue Tightness Palpation Details Stemmer sign positive right LE PT-OP-K Range of Motion Start: 10/07/19 13:00 Freq: Status: Active Protocol: Document 10/07/19 13:01 [facility] (Rec: 10/12/19 17:24 [facility] [id number]) Hip Goniometric Range of Motion Hip adonay Hip ROM WFL Yes Knee Goniometric Range of Motion Knee adonay Knee ROM WFL Yes Ankle and Foot Goniometric Range of Motion Ankle and Foot Right Ankle/Foot ROM WFL No Dorsiflexion with Knee Flexed 0 Dorsiflexion with Knee Extended 5 left Ankle/Foot ROM WFL Yes Ankle and Foot ROM Limitations ROM Limitations Swelling Toe Range of Motion Toes ROM Limitations Toe ROM Limitations Soft Tissue Tightness,Swelling PT-OP-N Lymphedema Start: 10/07/19 13:00 Freq: Status: Active Protocol: Document 11/03/19 17:06 [facility] (Rec: 11/03/19 17:15 [facility] [id number]) Lymphedema Measurements Lower Extremity Circumference Measurements Right Affected MT Heads 24.1 cm Medial Malleolus 27.1 cm 10 cm From Medial Malleolus 26 cm 20 cm From Medial Malleolus 35.2 cm 30 cm From Medial Malleolus 37.2 cm 40 cm From Medial Malleolus 40.3 cm 50 cm From Medial Malleolus 42.8 cm 60 cm From Medial Malleolus 49.8 cm 70 cm From Medial Malleolus 57.2 cm Comments Lymphedema Comments midfoot right 24.9 PT-OP-Q Treatments Start: 10/07/19 13:00 Freq: Status: Active Protocol: Document 11/03/19 17:06 [facility] (Rec: 11/03/19 17:15 [facility] [id number]) Lymphedema Treatment Manual Lymphatic Drainage Location right LE Duration 30 Lymphedema Wrapping Other Not done; patient to use compression stocking at home due to good reduction with use . Patient Education Compression Garments given measurements and pressure recommendation PT-OP-T Assessment and Plan Start: 10/07/19 13:00 Freq: Status: Active Protocol: Document 11/03/19 17:06 [facility] (Rec: 11/03/19 17:15 [facility] [id number]) Physical Therapy Assessment Goals Three Impairment ROM Fpc Goal (LTG) ROM WNL right ankle for safe mobility LTG Duration 01/10/20 Two Impairment lymphedema Short Term Goal (STG) Decrease circumferential measurements right LE to stable level (no increase or decrease greater than 1cm over the course of 1 week) STG Duration 12/27/19 [facility] Goal (LTG) Patient to be fit with appropriate compression garment for lymphedema management LTG Duration 01/10/20 One Impairment knowledge and self-care deficit Short Term Goal (STG) Patient to be instructed in self-MLD, self-wrapping, lymphedema precautions, sequential lymphedema exercises STG Duration 10/27/19 [facility] Goal (LTG) Patient to be independent with all aspects of lymphedema self management LTG Duration 01/10/20 Assessment Summary Assessment Patient presented with significant reduction in swelling right LE with use of compression stocking. Recommend continued use, do not feel he needs compression wrapping at this time. Reviewed self MLD and exercise . Patient was given measurements of his LE with recommendation for pressure of 20-30 mm Hg (higher than his current stocking), with instruction for increase pressure level if swelling doesn't stay under control. He was given information about local pharmacy ([place]) that can order stockings or may order online via [employer]. As he is currently doing well, we discussed follow-up appointment in 3-4 weeks; he is to contact me sooner if any other issues arise. Physical Therapy Plan Frequency and Duration Frequency of Treatment 16 visits Duration of Treatment 12 wks Plan of Care Start Date 10/07/19 Plan of Care End Date 01/10/20 Therapeutic Interventions Therapeutic Interventions Lymphedema Management,Manual Therapy,Patient/Caregiver Education,Self-Care/Home Management,Therapeutic Exercises Next Visit Focus/Plan Next Note Type Treatment Note Next Visit Plan REassess need for any further PT.
--- NOTE | 2019-11-20 15:10 | PT.OPDS ---
Current Diagnoses Lymphedema, not elsewhere classified (11/03/19) Localized edema (11/03/19) Visit Care Team Role Provider Type Han Curiel MD Attending Provider Non-Staff Family Provider Primary Care Provider Referring Provider Specialty: Medical Address: [facility] [address], [place], [address] Email: Visit Number Visit Number 2 Discharge Summary PT-OP-B Current Condition Start: 10/07/19 13:00 Freq: Status: Active Protocol: Document 10/07/19 13:01 [facility] (Rec: 10/07/19 15:22 SAK [id number]) Current Condition History of Current Condition Onset Date 3 wks ago Current Complaints swelling right LE History of Current Condition Woke up with swelling right LE , no trauma, no surgery. History of bladder cancer; surgery April and May 2019. Chemo June 17-. Reports recent blood tests looked good. No lymph nodes removed, no incision; entry was through the penis. History HTN, medicated. No other cardiac issues. PA did blood work and x-rays, doppler; all negative. Doctor did ltrasound and blood work normal. Compression stockings (generic copper) not helpful. Prescribed Prednisone which decreased the swelling some. Prior Treatments and Tests see above Future Testing and Treatments Planned Chemo end of October 1x/wk x 3 wks. Treatment Goals Patient/Caregiver Goals Minimize or eliminate the swelling in his LE to allow him to wear his usual clothes and return to all usual activities. Personal Factors Other Personal Factors That May Effect PMH: left TKA, left HALLEY, 3 Therapy/Recovery inguinal herniasurgeries. Yashira biopsy years ago- sees a design studio consultant. PT-OP-C Subjective Start: 10/07/19 13:00 Freq: Status: Active Protocol: Document 11/03/19 17:06 [facility] (Rec: 11/03/19 17:15 [facility] [id number]) OP-PT Subjective Patient Comments Patient Comments Patient reports he tried compression stockings again at home with better results than previously. Not wearing today but indicating decrease in swelling in right LE. PT-OP-G Mobility & Gait Start: 10/07/19 13:00 Freq: Status: Active Protocol: Document 10/07/19 13:01 [facility] (Rec: 10/12/19 17:24 [facility] [id number]) OP Gait Assessment Gait Gait Assistance Required: Independent Assistive Devices Assistive Device None PT-OP-J Posture/Palpation/Skin Start: 10/07/19 13:00 Freq: Status: Active Protocol: Document 10/07/19 13:01 [facility] (Rec: 10/12/19 17:24 [facility] [id number]) Palpation Assessment Location right LE Palpation Findings Edema,Soft Tissue Tightness Palpation Details Stemmer sign positive right LE PT-OP-K Range of Motion Start: 10/07/19 13:00 Freq: Status: Active Protocol: Document 10/07/19 13:01 [facility] (Rec: 10/12/19 17:24 [facility] [id number]) Hip Goniometric Range of Motion Hip adonay Hip ROM WFL Yes Knee Goniometric Range of Motion Knee adonay Knee ROM WFL Yes Ankle and Foot Goniometric Range of Motion Ankle and Foot Right Ankle/Foot ROM WFL No Dorsiflexion with Knee Flexed 0 Dorsiflexion with Knee Extended 5 left Ankle/Foot ROM WFL Yes Ankle and Foot ROM Limitations ROM Limitations Swelling Toe Range of Motion Toes ROM Limitations Toe ROM Limitations Soft Tissue Tightness,Swelling PT-OP-N Lymphedema Start: 10/07/19 13:00 Freq: Status: Active Protocol: Document 11/03/19 17:06 [facility] (Rec: 11/03/19 17:15 [facility] [id number]) Lymphedema Measurements Lower Extremity Circumference Measurements Right Affected MT Heads 24.1 cm Medial Malleolus 27.1 cm 10 cm From Medial Malleolus 26 cm 20 cm From Medial Malleolus 35.2 cm 30 cm From Medial Malleolus 37.2 cm 40 cm From Medial Malleolus 40.3 cm 50 cm From Medial Malleolus 42.8 cm 60 cm From Medial Malleolus 49.8 cm 70 cm From Medial Malleolus 57.2 cm Comments Lymphedema Comments midfoot right 24.9 PT-OP-T Assessment and Plan Start: 10/07/19 13:00 Freq: Status: Active Protocol: Document 11/20/19 15:07 [facility] (Rec: 11/20/19 15:10 [facility] [id number]) Physical Therapy Plan Discharge Physical Therapy Discharge Reasons Goals Met
--- NOTE | 2020-01-15 11:47 | PT.OPDS ---
Current Diagnoses Lymphedema, not elsewhere classified (11/03/19) Localized edema (11/03/19) Visit Care Team Role Provider Type Han Curiel MD Attending Provider Non-Staff Family Provider Primary Care Provider Referring Provider Specialty: Medical Address: [facility] [address], [place], [address] Email: Visit Number Visit Number 2 Discharge Summary PT-OP-B Current Condition Start: 10/07/19 13:00 Freq: Status: Active Protocol: Document 10/07/19 13:01 [facility] (Rec: 10/07/19 15:22 [facility]AK [id number]) Current Condition History of Current Condition Onset Date 3 wks ago Current Complaints swelling right LE History of Current Condition Woke up with swelling right LE , no trauma, no surgery. History of bladder cancer; surgery April and May 2019. Chemo June 17-. Reports recent blood tests looked good. No lymph nodes removed, no incision; entry was through the penis. History HTN, medicated. No other cardiac issues. PA did blood work and x-rays, doppler; all negative. Doctor did ltrasound and blood work normal. Compression stockings (generic copper) not helpful. Prescribed Prednisone which decreased the swelling some. Prior Treatments and Tests see above Future Testing and Treatments Planned Chemo end of October 1x/wk x 3 wks. Treatment Goals Patient/Caregiver Goals Minimize or eliminate the swelling in his LE to allow him to wear his usual clothes and return to all usual activities. Personal Factors Other Personal Factors That May Effect PMH: left TKA, left HALLEY, 3 Therapy/Recovery inguinal herniasurgeries. Yashira biopsy years ago- sees a magnetic testing technician. PT-OP-C Subjective Start: 10/07/19 13:00 Freq: Status: Active Protocol: Document 11/03/19 17:06 [facility] (Rec: 11/03/19 17:15 [facility] [id number]) OP-PT Subjective Patient Comments Patient Comments Patient reports he tried compression stockings again at home with better results than previously. Not wearing today but indicating decrease in swelling in right LE. PT-OP-G Mobility & Gait Start: 10/07/19 13:00 Freq: Status: Active Protocol: Document 10/07/19 13:01 [facility] (Rec: 10/12/19 17:24 [facility] [id number]) OP Gait Assessment Gait Gait Assistance Required: Independent Assistive Devices Assistive Device None PT-OP-J Posture/Palpation/Skin Start: 10/07/19 13:00 Freq: Status: Active Protocol: Document 10/07/19 13:01 [facility] (Rec: 10/12/19 17:24 [facility] [id number]) Palpation Assessment Location right LE Palpation Findings Edema,Soft Tissue Tightness Palpation Details Stemmer sign positive right LE PT-OP-K Range of Motion Start: 10/07/19 13:00 Freq: Status: Active Protocol: Document 10/07/19 13:01 [facility] (Rec: 10/12/19 17:24 [facility] [id number]) Hip Goniometric Range of Motion Hip adonay Hip ROM WFL Yes Knee Goniometric Range of Motion Knee adonay Knee ROM WFL Yes Ankle and Foot Goniometric Range of Motion Ankle and Foot Right Ankle/Foot ROM WFL No Dorsiflexion with Knee Flexed 0 Dorsiflexion with Knee Extended 5 left Ankle/Foot ROM WFL Yes Ankle and Foot ROM Limitations ROM Limitations Swelling Toe Range of Motion Toes ROM Limitations Toe ROM Limitations Soft Tissue Tightness,Swelling PT-OP-N Lymphedema Start: 10/07/19 13:00 Freq: Status: Active Protocol: Document 11/03/19 17:06 [facility] (Rec: 11/03/19 17:15 [facility] [id number]) Lymphedema Measurements Lower Extremity Circumference Measurements Right Affected MT Heads 24.1 cm Medial Malleolus 27.1 cm 10 cm From Medial Malleolus 26 cm 20 cm From Medial Malleolus 35.2 cm 30 cm From Medial Malleolus 37.2 cm 40 cm From Medial Malleolus 40.3 cm 50 cm From Medial Malleolus 42.8 cm 60 cm From Medial Malleolus 49.8 cm 70 cm From Medial Malleolus 57.2 cm Comments Lymphedema Comments midfoot right 24.9 PT-OP-T Assessment and Plan Start: 10/07/19 13:00 Freq: Status: Active Protocol: Document 11/20/19 15:07 [facility] (Rec: 11/20/19 15:10 [facility] [id number]) Physical Therapy Plan Discharge Physical Therapy Discharge Reasons Goals Met
== END 2020-01-23 12:13 ==
LOC: PHYS 11:15
PROVIDERS: Family Provider Family Medicine; PCP Family Medicine; Referring Provider Family Medicine; Visit Provider Family Medicine
DX: R60.0 Localized edema (principal); I89.0 Lymphedema, not elsewhere classified
CPT/HCPCS: 97140; 97162; 97535

== ENCOUNTER → 2023-10-11 10:21 | Outpatient (CLI) | payer MEDICARE, OTHER, SELFPAY ==
[2018-11-11 14:22] VITALS: BMI 28.7
--- NOTE | 2023-10-11 10:23 | DI.MRI.S_ITS ---
PROCEDURE: MR LUMBAR SPINE WO CON INDICATIONS: LUMBAR RADICULOPATHY TECHNIQUE: Noncontrast sagittal T1 spin echo and T2 fast echo, sagittal STIR, and T2 fast spin echo through the lumbar spine. In cases with scoliosis, additional coronal T2 fast spin echo may be performed. COMPARISON: None. FINDINGS: Image quality: Excellent. Alignment and Curvature: Trace anterolisthesis of L1 on L2, L2 on L3, and L3 on L4. Trace anterolisthesis of L4 on L5. Bone Marrow: Marrow is of normal overall signal. No acute vertebral body compression fractures. Spinal Cord: Conus medullaris terminates at the L1 level. Visualized cord demonstrates normal signal and size. Paraspinous Soft Tissues: No paravertebral masses. T12-L1: Facet hypertrophy. No canal stenosis or foraminal stenosis. L1-L2: Severe chronic disc height loss. Trace retrolisthesis. Diffuse posterior disc post osteophyte. Facet hypertrophy. Epidural lipomatosis. Moderate to severe canal stenosis. Moderate bilateral foraminal narrowing with mild flattening deformity on the exiting bilateral L1 nerve roots. L2-L3: Severe chronic disc height loss. Trace retrolisthesis. Posterior disc post osteophyte. Facet hypertrophy. [id number]-xi-qzhukyax canal stenosis. Moderate to severe right foraminal narrowing with a degree of right foraminal L2 nerve root impingement. Mild to moderate left foraminal narrowing. L3-L4: Severe chronic disc height loss. Facet and ligament hypertrophy. Prominent anterior medially directed facet joint cyst off of the right facet. Moderate to severe central canal stenosis. Severe right lateral recess stenosis with right lateral recess nerve root impingement. [id number]-[id number] bilateral foraminal stenosis. L4-L5: Trace anterolisthesis. Mild central posterior disc protrusion. Facet and ligament hypertrophy. Mild canal stenosis. [id number] bilateral foraminal stenosis. L5-S1: Disc bulge. Facet hypertrophy. No canal stenosis or foraminal stenosis. IMPRESSION: 1. Multilevel underlying facet arthropathy. 2. Canal stenosis is moderate to severe at L1-L2, [id number] at L2-L3, moderate to severe at L3-L4, and mild at L4-L5. 3. At L3-L4, there is also an anterior medially directed facet joint cyst off of the right facet resulting in severe right lateral recess stenosis. 4. Multilevel foraminal narrowing as described above. Findings include moderate to severe right foraminal narrowing at L2-L3. Dictated by: Flaco Singh M.D. on 10/11/2023 at 19:32 Approved by: Flaco Singh M.D. on 10/11/2023 at 19:37
== END ==
PROVIDERS: Family Provider Family Medicine; PCP Physician Assistant Medical; Referring Provider Orthopaedic Surgery; Visit Provider Orthopaedic Surgery
DX: M47.26 Other spondylosis with radiculopathy, lumbar region (principal); M47.27 Other spondylosis with radiculopathy, lumbosacral region; M51.16 Intervertebral disc disorders with radiculopathy, lumbar region; M51.17 Intervertebral disc disorders with radiculopathy, lumbosacral region; M48.061 Spinal stenosis, lumbar region without neurogenic claudication; M53.86 Other specified dorsopathies, lumbar region; M25.78 Osteophyte, vertebrae; E88.2 Lipomatosis, not elsewhere classified
CPT/HCPCS: 72148